=== PATIENT | female | born 1995 | race Caucasian/White ===

== ENCOUNTER 2020-08-05 09:43 | Outpatient (REF) | payer MEDICAID, SELFPAY ==
[2020-08-06 09:41] LABS: BV Int Neg Control Negative (Negative); BV Int Pos Control Positive (Positive)
[2020-08-09 16:13] LABS: HPV mRNA E6/E7 rflx Not Detected (Not Detected)
[2020-08-31 11:27] LABS: CT PCR NOT DETECTED (Not Detect.)
[2020-08-31 11:28] LABS: NG PCR NOT DETECTED (Not Detect.)
== END 2020-08-05 09:44 | disposition home or self-care (01) ==
LOC: HO.LAB 09:43
PROVIDERS: PCP Registered Nurse; Visit Provider Advanced Practice Midwife
DX: Z01.419 Encounter for gynecological examination (general) (routine) without abnormal findings (principal); N92.6 Irregular menstruation, unspecified; R10.2 Pelvic and perineal pain; Z12.4 Encounter for screening for malignant neoplasm of cervix; Z98.51 Tubal ligation status
CPT/HCPCS: 87480; 87491; 87510; 87591; 87624; 87625; 87660; 88142

== ENCOUNTER 2020-08-06 09:34 | Outpatient (REF) | payer MEDICAID, SELFPAY | END 2020-08-06 09:35 | disposition home or self-care (01) | LOC: HO.LAB 09:34 | PROVIDERS: Visit Provider Advanced Practice Midwife | DX: Z13.89 Encounter for screening for other disorder (principal) ==

== ENCOUNTER 2020-10-08 19:14 | Emergency (ER) | payer MEDICAID, SELFPAY ==
--- NOTE | ~2020-10-08 | CT_ITS ---
EXAMINATION: CT ABDOMEN AND PELVIS WITH CONTRAST CLINICAL INFORMATION: Right lower quadrant pain COMPARISON: None TECHNIQUE: Multidetector volumetric images were obtained from the superior aspect of the liver through the pubic symphysis following administration 85 mL of Omnipaque 350 intravenous contrast. Sagittal and coronal reformatted images were obtained on the technologist's workstation. Oral contrast: No This CT examination was performed using dose optimization techniques as appropriate, variously including the following: *Automated exposure control *Adjustment of mA and/or kV according to patient size (this includes techniques or standardized protocols for targeted exams where dose is matched to indication/reason for exam; i.e. extremities or head) *Use of iterative reconstruction technique DLP: 553 mGy-cm FINDINGS: LUNG BASES: The visualized lung bases are unremarkable. LIVER, GALLBLADDER, AND BILIARY TREE: The liver is normal in size, shape, and attenuation. No focal hepatic lesion or biliary ductal dilatation is present. Cholecystectomy. PANCREAS: Unremarkable. SPLEEN: Unremarkable. ADRENAL GLANDS: Unremarkable. KIDNEYS AND URETERS: The kidneys are normal in size, shape, and attenuation. No hydronephrosis, hydroureter, or calculi seen. No perinephric stranding. BLADDER: Unremarkable. GASTROINTESTINAL TRACT: The stomach is unremarkable. Normal caliber small bowel. There is no obstruction. A normal appendix is seen. No colonic wall thickening or inflammatory change. No free air. Trace pelvic free fluid. ABDOMINAL WALL: No significant hernia is appreciated. LYMPH NODES: Normal. VASCULAR: Unremarkable. PELVIC VISCERA: Anteverted uterus. No adnexal mass. Peripherally enhancing right ovarian follicle which measures 2.2 cm. OSSEOUS STRUCTURES: Unremarkable. CT/CT abdomen pelvis w con IMPRESSION: Normal appendix. Peripherally enhancing right ovarian follicle could represent hemorrhagic cyst.
[2020-10-08 19:31] VITALS: BP 124/75; PULSE 86; RESP 18; TEMP 36.9; O2SAT 100; BMI 23.8
[2020-10-08 21:41] LABS: Glucose Urine UA NEG (NEG); Leukocyte Esterase Urine NEG (NEG); Nitrite Urine NEG (NEG); Specific Gravity - Urine 1.025 (1.005-1.025); Urine Blood TRACE (NEG); Urine Ketones NEG (NEG); Urine Protein NEG (NEG-TRACE)
[2020-10-08 21:47] LABS: Appearance Urine CLEAR; Color Urine YELLOW
[2020-10-08 21:49] LABS: UPreg QC Valid YES; Urine Pregnancy NEGATIVE (NEGATIVE)
[2020-10-08 21:58] LABS: Bacteria Urine 1+ /LPF; Mucus Urine 1+ /LPF; Squamous Epithelial Cell Urine 1+ /LPF; WBC Urine 0-2 /HPF (0-4)
--- NOTE | 2020-10-08 23:04 | ED.ABDPAIN ---
HPI - Abdominal Pain General Chief Complaint: Abdominal Pain Stated Complaint: lower quad pain Time Seen by Provider: 10/08/20 23:03 Source: patient and machine attendant Mode of arrival: ambulatory Limitations: no limitations History of Present Illness HPI narrative: 25 yo female s/p maximiliano alan here with RLQ pain and nausea/anorexia x 2 days - has worsened MD elicited complaint: abdominal pain Onset (ago): day(s) (2) Pain Consistency: constant Location: RLQ Severity: moderate Quality: aching Radiation: RLQ Migration to: no migration Exacerbating factors: movement Relieving factors: nothing Associated symptoms: nausea Related Data Home Medications Medication Instructions Recorded Confirmed No Known Home Meds 08/05/20 08/05/20 Previous Rx's Medication Instructions Recorded cyclobenzaprine 10 mg PO TID PRN #14 tab 10/09/20 ibuprofen 600 mg PO Q6H PRN #30 tab 10/09/20 ondansetron 4 mg PO Q8H PRN #20 tab 10/09/20 Allergies Allergy/AdvReac Type Severity Reaction Status Date / Time No Known Allergies Allergy Verified 08/05/20 10:03 Review of Systems Review of Systems Constitutional : No Weight loss, No Fever, No Chills ENT/Mouth : No sore throat, No Rhinorrhea Eyes: No Swelling, No Redness Cardiovascular : No Chest Pain, No SOB, NoEdema Respiratory : No Cough, No Sputum, No Wheezing Gastrointestinal : Positive Nausea, no Vomiting, no Diarrhea, positive abdominal Pain, No Hematochezia, No Melena Genitourinary : No Dysuria, No Urinary Frequency, No Hematuria, No Urgency Musculoskeletal : No joint pain, No Myalgias, No Joint Swelling Skin : No Skin Lesions, No rash Neuro : No Weakness, No Numbness, No Dizziness, No Headache Psych : No Anxiety/Panic, No Depression Heme/Lymph: No Bruising, No Lymphadenopathy Endocrine : No Polyuria, No Polydipsia All other systems reviewed and are negative. Physical Exam Vital Signs: Vital Signs: Last Vital Signs Temp 98.4 F 10/08/20 23:24 Pulse 75 10/08/20 23:24 Resp 18 10/08/20 23:24 BP 110/69 10/08/20 23:24 Pulse Ox 100 10/08/20 23:24 Body Mass Index 23.8 Appearance: Alert. Oriented X3. No acute distress. Eyes: Pupils equal, round and reactive to light. ENT: Pharynx normal. Neck: Normal inspection. Neck supple. CVS: Normal heart rate and rhythm. Pulses normal. Respiratory: No respiratory distress. Breath sounds normal. Abdomen: Soft and moderate RLQ pain noted no rebound or guarding Skin: Skin warm and dry. Normal skin color. Normal skin turgor. Extremities: No lower extremity edema. No calf ttp Neuro: Oriented X 3. No motor deficit. No sensory deficit. Course Course Course Narrative: on repeat exam very minimal pain, H/H stable - doubt torsion 2.2 cm will treat for pain and DC home, all questions answered MDM - Abdominal Pain MDM Narrative Medical decision making narrative: 25 yo female here with RLQ pain x 2 days with nausea and anorexia at this time will need labs, IVF, IV Toradol for pain , CT scan to evaluate appendix, dispo per results and findings. Lab Data Result diagrams: 10/08/20 23:22 10/08/20 23:22 Labs: Lab Results 10/08/20 10/08/20 10/08/20 Range/Units 21:09 21:09 23:22 WBC 11.1 H (4.8-10.8) X10*3/uL RBC 4.05 L (4.20-5.50) X10*6/uL Hgb 12.3 (12.0-16.0) g/dl Hct 36.8 L (37-47) % MCV 90.9 (80-98) fL MCH 30.4 (27.0-33.0) pg MCHC 33.4 (31.0-35.0) g/dl RDW 11.6 (11.0-16.0) % Plt Count 273 (160-400) X10*3/uL MPV 11.4 (9.4-12.3) fL Immature Gran % (Auto) 0.3 (0.0-0.4) % Neut % (Auto) 42.4 L (45-73) % Lymph % (Auto) 48.9 H (20-40) % Spencer % (Auto) 6.8 (2-11) % Eos % (Auto) 1.2 (0-4) % Baso % (Auto) 0.4 (0-2) % Lymph # (Auto) 5.4 H (1.2-4.9) X10*3/uL Spencer # (Auto) 0.8 (0.1-1.2) X10*3/uL Eos # (Auto) 0.1 (0.0-0.4) X10*3/uL Baso # (Auto) 0.0 (0.0-0.2) X10*3/uL Abs Immat Gran (auto) 0.03 (0.00-0.03) X10*3/uL Absolute Neuts (auto) 4.7 (2.0-8.3) X10*3/uL Absolute Nucleated RBC 0.000 (0.0-0.012) X10*3/uL Nucleated RBC % (auto) 0.0 (0.0-0.2) /100WBC Smear Tech's Comments VERIFIED PT (10.8-13.0) SEC INR (0.9-1.1) APTT (24.1-38.0) SEC Sodium (135-145) mmol/L Potassium (3.3-5.1) mmol/L Chloride (96-108) mmol/L Carbon Dioxide (22-29) mmol/L Anion Gap (12-20) BUN (9-16) mg/dL Creatinine (0.5-1.4) mg/dL Estim Creat Clear Calc Estimated GFR Random Glucose (60-115) mg/dL Calcium (8.4-10.2) mg/dL Magnesium (1.6-2.6) mg/dL Total Bilirubin (0.0-1.0) mg/dL Direct Bilirubin (0.0-0.5) mg/dL AST (5-31) U/L ALT (0-31) U/L Alkaline Phosphatase (39-117) U/L Total Protein (6.5-8.0) g/dL Albumin (3.5-5.0) g/dL Lipase (8-78) U/L Urine Color YELLOW Urine Appearance CLEAR Urine pH 6.0 (5.0-8.0) Ur Specific [place] 1.025 (1.005-1.025) Urine Protein NEG (NEG-TRACE) MG/DL Urine Glucose (UA) NEG (NEG) MG/DL Urine Ketones NEG (NEG) MG/DL Urine Blood TRACE (NEG) Urine Nitrite NEG (NEG) Ur Leukocyte Esterase NEG (NEG) Urine RBC 1-4 (0) /HPF Urine WBC 0-2 (0-4) /HPF Ur Squamous Epith Cells 1+ /LPF Urine Bacteria 1+ /LPF Urine Mucus 1+ /LPF Urine Test NEGATIVE (NEGATIVE) COVID-19 (ALEX) (Negative) COVID-19 Clin Com 10/08/20 10/08/20 10/08/20 Range/Units 23:22 23:22 23:22 WBC (4.8-10.8) X10*3/uL RBC (4.20-5.50) X10*6/uL Hgb (12.0-16.0) g/dl Hct (37-47) % MCV (80-98) fL MCH (27.0-33.0) pg MCHC (31.0-35.0) g/dl RDW (11.0-16.0) % Plt Count (160-400) X10*3/uL MPV (9.4-12.3) fL Immature Gran % (Auto) (0.0-0.4) % Neut % (Auto) (45-73) % Lymph % (Auto) (20-40) % Spencer % (Auto) (2-11) % Eos % (Auto) (0-4) % Baso % (Auto) (0-2) % Lymph # (Auto) (1.2-4.9) X10*3/uL Spencer # (Auto) (0.1-1.2) X10*3/uL Eos # (Auto) (0.0-0.4) X10*3/uL Baso # (Auto) (0.0-0.2) X10*3/uL Abs Immat Gran (auto) (0.00-0.03) X10*3/uL Absolute Neuts (auto) (2.0-8.3) X10*3/uL Absolute Nucleated RBC (0.0-0.012) X10*3/uL Nucleated RBC % (auto) (0.0-0.2) /100WBC Smear Tech's Comments PT 12.0 (10.8-13.0) SEC INR 1.0 (0.9-1.1) APTT 38.6 H (24.1-38.0) SEC Sodium 138 (135-145) mmol/L Potassium 3.6 (3.3-5.1) mmol/L Chloride 105 (96-108) mmol/L Carbon Dioxide 27 (22-29) mmol/L Anion Gap 10 L (12-20) BUN 20 H (9-16) mg/dL Creatinine 0.70 (0.5-1.4) mg/dL Estim Creat Clear Calc 113.0 Estimated GFR > 60 Random Glucose 72 (60-115) mg/dL Calcium 9.4 (8.4-10.2) mg/dL Magnesium 1.9 (1.6-2.6) mg/dL Total Bilirubin 0.5 (0.0-1.0) mg/dL Direct Bilirubin 0.2 (0.0-0.5) mg/dL AST 22 (5-31) U/L ALT 18 (0-31) U/L Alkaline Phosphatase 64 (39-117) U/L Total Protein 7.3 (6.5-8.0) g/dL Albumin 4.3 (3.5-5.0) g/dL Lipase 32 (8-78) U/L Urine Color Urine Appearance Urine pH (5.0-8.0) Ur Specific [place] (1.005-1.025) Urine Protein (NEG-TRACE) MG/DL Urine Glucose (UA) (NEG) MG/DL Urine Ketones (NEG) MG/DL Urine Blood (NEG) Urine Nitrite (NEG) Ur Leukocyte Esterase (NEG) Urine RBC (0) /HPF Urine WBC (0-4) /HPF Ur Squamous Epith Cells /LPF Urine Bacteria /LPF Urine Mucus /LPF Urine Test (NEGATIVE) COVID-19 (ALEX) Negative (Negative) COVID-19 Clin Com See Note Discharge Plan Discharge Clinical Impression: Ovarian cyst Qualifiers: Laterality: right Qualified Code(s): N83.201 - Unspecified ovarian cyst, right side Patient Disposition: Home, Self-Care Instructions: Ovarian Cyst (ED) Additional Instructions: return to ED for any worsening symptoms or concerns REPEAT ULTRASOUND IN 4 WEEKS Prescriptions: New cyclobenzaprine 10 mg tablet 10 mg PO TID PRN (Reason: muscle spasm) Qty: 14 RF: 0 ibuprofen 600 mg tablet 600 mg PO Q6H PRN (Reason: pain) Qty: 30 RF: 0 ondansetron 4 mg tablet,disintegrating 4 mg PO Q8H PRN (Reason: nausea and vomiting) Qty: 20 RF: 0 No Action No Known Home Meds RF: 0 Referrals: [place] [Primary Care Provider] - None (4 weeks repeat ultrasound) Stand Alone Forms: Work/School Release Print Language: Pashto [facility] Past Medical History Attestation statement: The following information was validated with the patient. Medical History (Updated 10/09/20 @ 01:26 by Chandni Steele DO) Bipolar 1 disorder Surgical History (Updated 10/08/20 @ 23:39 by Chandni Steele DO) History of hip surgery Hx of cholecystectomy Hx of tubal ligation Family History Family History (Updated 08/05/20 @ 10:06 by Mireille Erickson CMA) Maternal Aunt No problems noted. Social History Social History Alcohol intake: never Smoking Status: Never smoker Smoked in Last 30 Days: No Use of substances other than those prescribed or required for medical reasons: No Advance Directives: No Gender identity: female
[2020-10-08 23:24] VITALS: BP 110/69; PULSE 75; RESP 18; TEMP 36.9; O2SAT 100
[2020-10-08] MEDS: 0.9 % Sodium Chloride 1,000 ML 999 ML IVCONT (23:28)
[2020-10-08] MEDS: Ketorolac Tromethamine 30 MG/ML VIAL IVPUSH (23:30)
[2020-10-08] MEDS: ondansetron HCL 4 MG/2 ML VIAL IVPUSH (23:30)
[2020-10-08 23:31] LABS: Basophils Percent Auto 0.4 % (0-2); Eosinophils Absolute Auto 0.1 X10*3/uL (0.0-0.4); Eosinophils Percent Auto 1.2 % (0-4); Hematocrit 36.8 % (37-47); Hemoglobin 12.3 g/dl (12.0-16.0); Imm Gran Abs Auto 0.03 X10*3/uL (0.00-0.03); Imm Gran Pct Auto 0.3 % (0.0-0.4); Lymphocytes Absolute Auto 5.4 X10*3/uL (1.2-4.9); Lymphocytes Percent Auto 48.9 % (20-40); MANUAL DIFF FLAG SCAN; Mean Corpuscular HGB Conc 33.4 g/dl (31.0-35.0); Mean Corpuscular Hemoglobin 30.4 pg (27.0-33.0); Mean Corpuscular Volume 90.9 fL (80-98); Mean Platelet Volume 11.4 fL (9.4-12.3); Monocytes Absolute Auto 0.8 X10*3/uL (0.1-1.2); Monocytes Percent Auto 6.8 % (2-11); Neutrophils Absolute Auto 4.7 X10*3/uL (2.0-8.3); Neutrophils Percent Auto 42.4 % (45-73); Platelet Count 273 X10*3/uL (160-400); Red Blood Count 4.05 X10*6/uL (4.20-5.50); Red Cell Distribution Width 11.6 % (11.0-16.0); SCAN SMEAR FLAG 1; White Blood Count 11.1 X10*3/uL (4.8-10.8)
[2020-10-08 23:40] LABS: Partial Thromboplastin Time 38.6 SEC (24.1-38.0)
[2020-10-08 23:46] LABS: COVID-19 Test Negative (Negative)
[2020-10-08 23:48] LABS: SLIDE REVIEW VERIFIED
[2020-10-08 23:50] LABS: Alanine Aminotransferase 18 U/L (0-31); Albumin Level 4.3 g/dL (3.5-5.0); Alkaline Phosphatase 64 U/L (39-117); Anion Gap 10 (12-20); Aspartate Amino Transferase 22 U/L (5-31); Bilirubin Direct 0.2 mg/dL (0.0-0.5); Bilirubin Total 0.5 mg/dL (0.0-1.0); Blood Urea Nitrogen 20 mg/dL (9-16); Calcium 9.4 mg/dL (8.4-10.2); Carbon Dioxide 27 mmol/L (22-29); Chloride 105 mmol/L (96-108); Estimated Glomerular Filt Rate > 60; Glucose Random 72 mg/dL (60-115); Lipase 32 U/L (8-78); Magnesium 1.9 mg/dL (1.6-2.6); Potassium 3.6 mmol/L (3.3-5.1); Sodium 138 mmol/L (135-145); Total Protein 7.3 g/dL (6.5-8.0)
[2020-10-09] MEDS: iohexoL 350 MG/ML 100 ML INFUS..BTL 85 ML IV (00:54)
[2020-10-09 02:00] VITALS: BP 104/56; PULSE 84; RESP 18; TEMP 36.7; O2SAT 99
== END 2020-10-09 02:36 | disposition home or self-care (01) ==
PROVIDERS: Emergency Provider Emergency Medicine
DX: N83.01 Follicular cyst of right ovary (principal); Z20.822 Contact with and (suspected) exposure to COVID-19; Z90.49 Acquired absence of other specified parts of digestive tract
CPT/HCPCS: 36415; 74177; 80048; 80076; 81001; 81025; 83690; 83735; 85025; 85610; 85730; 87635; 96361; 96374; 96375; 99284; 99285; J1885; J2405; Q9967

== ENCOUNTER 2020-11-21 14:30 | Outpatient (REF) | payer MEDICAID, SELFPAY ==
--- NOTE | ~2020-11-21 | US_ITS ---
EXAMINATION: US PELVIS CLINICAL INFORMATION: Right ovarian cysts. COMPARISON: CT dated 10/09/2020 TECHNIQUE: Ultrasound of the pelvis is performed using a transabdominal approach. FINDINGS: Uterus: The uterus is anteverted and measures 8.1 x 3.8 x 4.8 cm. The double wall endometrial thickness is 4 mm. The uterus is smooth in contour and has normal myometrial echogenicity. No visible fibroid. Adnexa: Both ovaries are visualized. There is normal color flow to the adnexa. There is no ovarian torsion. There is no pelvic ascites or fluid collection. Right ovary measures 2.6 x 2.2 x 2.0 cm. Previously seen right ovarian cyst has resolved. Left ovary measures 2.9 x 2.0 x 2.5 cm. US/US pelvic complete IMPRESSION: No ovarian or adnexal cyst/mass. Unremarkable exam.
== END 2020-11-21 14:31 | disposition home or self-care (01) ==
LOC: HO.US 14:30
PROVIDERS: Visit Provider Registered Nurse
DX: R10.9 Unspecified abdominal pain (principal); N83.201 Unspecified ovarian cyst, right side
CPT/HCPCS: 76856

== ENCOUNTER 2022-10-14 10:18 | Emergency (ER) | payer MEDICAID, SELFPAY ==
--- NOTE | ~2022-10-14 | CT_ITS ---
EXAMINATION: CT HEAD WITHOUT CONTRAST CLINICAL INFORMATION: Right-sided headaches and pain COMPARISON: None TECHNIQUE: Contiguous axial imaging was performed from the skull base to vertex without intravenous administration of contrast. This CT examination was performed using dose optimization techniques as appropriate, variously including the following: *Automated exposure control *Adjustment of mA and/or kV according to patient size (this includes techniques or standardized protocols for targeted exams where dose is matched to indication/reason for exam; i.e. extremities or head) *Use of iterative reconstruction technique DLP: 588 mGy-cm FINDINGS: No intra or extra-axial fluid collection, hemorrhage, mass or mass effect. Sulci and ventricles appear normal. Calvarium intact. Mucoperiosteal thickening with superimposed fluid seen in the visualized portions of the left maxillary sinus. The mastoid air cells appear clear. The right and left middle ears and external auditory canals appear clear. CT/CT head/brain wo IV con IMPRESSION: Left maxillary sinus disease. Please refer to the mastoid CT for more complete evaluation of the left as well as the right maxillary sinus since the structures were not fully covered on this head CT. No acute intracranial abnormalities.
--- NOTE | ~2022-10-14 | CT_ITS ---
CT MASTOIDS WITHOUT CONTRAST CLINICAL INFORMATION: Right-sided headache/ear pain for one month. COMPARISON: Head CT 10/14/2022. TECHNIQUE: Multidetector CT acquisition of the temporal bones obtained without contrast. FINDINGS: The mastoid air cells and middle ear cavities are clear. Tympanic plates are intact and the external auditory canals are well aerated. Ossicular chains are intact bilaterally. Inner ear structures including the cochlea, vestibules, and semicircular canals are normal. The vestibular aqueducts are not enlarged. Internal carotid arteries remain well covered with with bone. There is no otospongiosis. Moderate mucosal thickening and aerosolized secretions within the left maxillary sinus. Mild mucosal thickening within the remaining paranasal sinuses. Recommend correlating for clinical signs of acute sinusitis. CT/CT mastoid IMPRESSION: - Unremarkable CT of the temporal bones. The mastoid air cells and middle ear cavities are clear. - Moderate mucosal thickening and aerosolized secretions within the left maxillary sinus. Mild mucosal thickening within the remaining paranasal sinuses. Recommend correlating for clinical signs of acute sinusitis.
[2022-10-14 10:37] VITALS: BP 140/88; PULSE 92; RESP 16; TEMP 36.8; O2SAT 100; BMI 23.4
--- NOTE | 2022-10-14 11:05 | ED_ITS ---
HPI - Ear Problem General Chief complaint: Headache Stated complaint: headache, R ear ache Time Seen by Provider: 10/14/22 10:54 Source: patient and family (Spouse) Mode of arrival: ambulatory Limitations: language barrier (Swedish-speaking) History of Present Illness HPI Narrative: 27yoF who is Swedish Speaking who is presenting to the ER with complaints of right-sided ear pain with a headache to the right side of her head that is throbbing in sensation that has been persistent for over a month. Reports that she was seen at [facility] prescribed antibiotics for 10 days to pass prescribed. She reports that they told her she had no relief that she should return therefore she did return and then they told her that a course of steroids should help. She reports that she took a 5 day course of steroids and no symptomatic relief. Therefore she came here for further evaluation treatment. She denies any fevers, recent falls or trauma recent travel, ringing of the ears, dizziness, neck pain/stiffness, recent head injury, neck pain/stiffness, trouble swallowing breathing, chest pain or shortness breath, paresthesias, weakness anywhere, abdominal pain, lower extremity edema or calf tenderness, rashes, sore throat, cough, grinding of her teeth or any other symptoms complaints or concerns at this time. MD Complaint: ear pain (And headache) Location: right ear Duration: constant Severity: mild Relieving factors: nothing Exacerbating factors: chewing and palpation Discharge from ear: no Associated symptoms ear: headache Treatment prior to arrival: other (Took a course of antibiotics and a course of steroids over the past) Related Data Previous Rx's Medication Instructions Recorded cyclobenzaprine 10 mg tablet 10 mg PO TID PRN muscle spasm #14 10/09/20 tabs ibuprofen 600 mg tablet 600 mg PO Q6H PRN pain #30 tabs 10/09/20 ondansetron 4 mg disintegrating 4 mg PO Q8H PRN nausea and 10/09/20 tablet vomiting #20 tabs cyclobenzaprine 10 mg tablet 10 mg PO Q8H #14 tabs 10/14/22 levofloxacin 750 mg tablet 750 mg PO DAILY Sinusitis 10/14/22 maxillary 7 days #7 tabs Allergies Allergy/AdvReac Type Severity Reaction Status Date / Time No Known Allergies Allergy Verified 10/14/22 10:42 Review of Systems Review of Systems: Constitutional : No changes in activity, No lethargy, No recent prior head injury, No agitation, No increased fussiness ENT/Mouth :+ right sided Ear Pain, + Nasal discharge/drainage Eyes: No Eye Pain, No Swelling, No Redness, No Foreign Body, No Vision Changes Cardiovascular : No Chest Pain, No SOB Respiratory : No Cough Gastrointestinal : No Nausea, No Vomiting, No abdominal Pain Genitourinary : No Dysuria, No Urinary Frequency, No Urinary Incontinence, No Urgency, No Flank Pain Musculoskeletal : No joint pain, No neck stiffness, No back pain/injury Skin : No lacerations Neuro : No unsteady gait, No Paresthesias, No Loss of Consciousness, No altered mental status, No dizziness, + Headache Denies past medical history of HIV, recent trauma, coagulopathy, recent spinal/ epidural procedure, new medication, URI symptoms, close contacts with similar symptoms, tick bite, or known CO2 exposure. Yes all other systems are reviewed and are negative PMFSH Past Medical History Attestation statement: The following information was validated with the patient. Source: old records reviewed and nursing notes reviewed Medical History Bipolar 1 disorder Surgical History History of hip surgery Hx of cholecystectomy Hx of tubal ligation Family History Family History Maternal Aunt No problems noted. Social History Social History Alcohol intake: never Advance Directives: No Advance Directives Information Provided: No Gender identity: Female Physical Exam Vital Signs: Vital Signs: Last Vital Signs Temp 98.3 F 10/14/22 10:37 Pulse 92 10/14/22 10:37 Resp 16 10/14/22 10:37 BP 140/88 H 10/14/22 10:37 Pulse Ox 100 10/14/22 10:37 O2 Del Method 10/14/22 10:37 BMI result Body Mass Index 23.4 Vital signs have been reviewed as normal and appeared to be correct. Blood p ressure normal. Heart rate normal. Respiration rate normal. Temperature normal. Oxygen saturation normal. Appearance: Alert. Oriented X3. No acute distress. Head: Normal external exam. Normocephalic. Atraumatic. Able to rotate head bilaterally. Eyes: PERRLA. EOMI. No nystagmus noted. Conjunctiva and sclera normal. Eyelids normal. Corneal reflex normal. ENT: EAC normal. TM's Normal. No tenderness over the mastoids. No abnormalities over the mastoids. Hearing normal. Pharynx normal. Uvula midline. tongue midline. Moist mucous membranes. No trismus noted. No drooling noted. No muffled voice noted. Patient has tenderness palpation on the right side of the TMJ joint. No crepitus is noted. Neck: Normal inspection. Neck supple. FROM. No adenopathy. Thyroid Normal. No meningeal signs. No neck mass noted. CVS: Normal heart rate and rhythm. Heart sound normal. No murmurs noted. Pulses normal throughout. Respiratory: No respiratory distress. Painless inspiration. Breath sounds normal. No wheezes/rales/rhonchi noted. Chest nontender. No accessory muscle usage noted or decreased air movement noted. Back: Full range of motion noted. Skin: Skin warm and dry. Normal skin color. Normal skin turgor. No rashes/lesions/lacerations noted. Extremities: Extremities exhibit normal range of motion. Extremities nontender. Able to shrug shoulders bilaterally and keep up against resistance. Neuro: Oriented X 3. No motor deficit. No sensory deficit. Reflexes normal. Moving all extremities. No focal motor deficits. Cranial nerves II-XI intact bilaterally. Facial strength normal. Normal cognition. Speech normal. Gait normal. Strength 5/5 throughout. No tremor noted. Muscle tone normal throughout. Course Course Course Narrative: 27yoF who is Swedish Speaking who is presenting to the ER with complaints of right-sided ear pain with a headache to the right side of her head that is throbbing in sensation that has been persistent for over a month. Reports that she was seen at [facility] prescribed antibiotics for 10 days to pass prescribed. She reports that they told her she had no relief that she should return therefore she did return and then they told her that a course of steroids should help. She reports that she took a 5 day course of steroids and no symptomatic relief. Therefore she came here for further evaluation treatment. Patient most likely TMJ syndrome. Not consistent with otitis media. Not consistent with otitis externa. Not consistent mastoiditis. Not consistent with pharyngitis. Not consistent with foreign body. Will obtain a CT scan of brain and mastoid and and re-evaluate. Reevaluation(s) Reevaluation #1: CT scan of brain and mastoids revealed moderate mucosal thickening and secretions which in the maxillary sinuses. Otherwise no other acute processes. Therefore patient most likely sinusitis with TMJ syndrome. Will start on another course of antibiotics and muscle relaxants and instructions to follow-up with PCP and to return if any new or worsening symptoms. Patient understands agrees with this plan. Time: 12:43 Medical Decision Making Independent Interpretation I performed an independent interpretation of an: CT Scan (I reviewed the CT scan of brain and mastoid and reviewed this with the patient she understands results) Radiology Impression Discussion of test interpretation with radiology: I have reviewed the radiologist's reading. Radiologist Impression: FINDINGS: The mastoid air cells and middle ear cavities are clear. Tympanic plates are intact and the external auditory canals are well aerated. Ossicular chains are intact bilaterally. Inner ear structures including the cochlea, vestibules, and semicircular canals are normal. The vestibular aqueducts are not enlarged. Internal carotid arteries remain well covered with with bone. There is no otospongiosis. Moderate mucosal thickening and aerosolized secretions within the left maxillary sinus. Mild mucosal thickening within the remaining paranasal sinuses. Recommend correlating for clinical signs of acute sinusitis. CT/CT mastoid IMPRESSION: - Unremarkable CT of the temporal bones. The mastoid air cells and middle ear cavities are clear. ? - Moderate mucosal thickening and aerosolized secretions within the left maxillary sinus. Mild mucosal thickening within the remaining paranasal sinuses. Recommend correlating for clinical signs of acute sinusitis. FINDINGS: No intra or extra-axial fluid collection, hemorrhage, mass or mass effect. Sulci and ventricles appear normal. Calvarium intact. Mucoperiosteal thickening with superimposed fluid seen in the visualized portions of the left maxillary sinus. The mastoid air cells appear clear. The right and left middle ears and external auditory canals appear clear. ? CT/CT head/brain wo IV con IMPRESSION: Left maxillary sinus disease. Please refer to the mastoid CT for more complete evaluation of the left as well as the right maxillary sinus since the structures were not fully covered on this head CT. ? No acute intracranial abnormalities. Independent Historian Clinical information obtained from an independent historian. History obtained from or confirmed by: Spouse Discharge Plan Discharge Clinical Impression: Acute maxillary sinusitis, Right-sided temporomandibular joint pain-dysfunction syndrome Patient Disposition: Home, Self-Care Instructions: Sinusitis (ED), Temporomandibular Disorder (ED) Prescriptions: New levofloxacin 750 mg tablet 750 mg PO DAILY 7 Days Qty: 7 0RF cyclobenzaprine 10 mg tablet 10 mg PO Q8H Qty: 14 0RF No Action cyclobenzaprine 10 mg tablet 10 mg PO TID PRN (Reason: muscle spasm) Qty: 14 0RF ibuprofen 600 mg tablet 600 mg PO Q6H PRN (Reason: pain) Qty: 30 0RF ondansetron 4 mg tablet,disintegrating 4 mg PO Q8H PRN (Reason: nausea and vomiting) Qty: 20 0RF Referrals: [facility] [Primary Care Provider] - 3 days Print Language: Swedish
== END 2022-10-14 13:08 | disposition home or self-care (01) ==
PROVIDERS: Emergency Provider Emergency Medicine
DX: J01.00 Acute maxillary sinusitis, unspecified (principal); R51.9 Headache, unspecified; M26.621 Arthralgia of right temporomandibular joint; H92.01 Otalgia, right ear; Z79.899 Other long term (current) drug therapy
CPT/HCPCS: 70450; 70481; 99282; 99284

== ENCOUNTER 2023-12-20 09:48 | Outpatient (REF) | payer MEDICAID, SELFPAY ==
[2023-12-20 11:40] LABS: MANUAL DIFF FLAG NO
[2023-12-20 11:48] LABS: Basophils Absolute Auto 0.1 X10*3/uL (0.0-0.2); Basophils Percent Auto 0.8 % (0-2); Eosinophils Absolute Auto 0.2 X10*3/uL (0.0-0.4); Eosinophils Percent Auto 3.2 % (0-4); Hematocrit 38.1 % (37.0-47.0); Imm Gran Abs Auto 0.02 X10*3/uL (0.00-0.03); Imm Gran Pct Auto 0.3 % (0.0-0.4); Lymphocytes Absolute Auto 2.6 X10*3/uL (1.2-4.9); Lymphocytes Percent Auto 42.6 % (20-40); Mean Corpuscular HGB Conc 34.1 g/dl (31.0-35.0); Mean Corpuscular Hemoglobin 30.8 pg (27.0-33.0); Mean Corpuscular Volume 90.3 fL (80.0-98.0); Mean Platelet Volume 11.5 fL (9.4-12.3); Monocytes Absolute Auto 0.5 X10*3/uL (0.1-1.2); Monocytes Percent Auto 7.7 % (2-11); Neutrophils Absolute Auto 2.7 x10*3/uL (2.0-8.3); Neutrophils Percent Auto 45.4 % (45-73); Platelet Count 328 X10*3/uL (160-400); Red Blood Count 4.22 X10*6/uL (4.20-5.50); Red Cell Distribution Width 11.9 % (11.0-16.0)
[2023-12-20 12:30] LABS: Estimated Average Glucose 85 mg/dL; Hemoglobin A1c % 4.6 % (<6.0)
[2023-12-20 13:09] LABS: Alanine Aminotransferase 15 U/L (0-31); Albumin Level 4.3 g/dL (3.5-5.0); Alkaline Phosphatase 60 U/L (39-117); Anion Gap 9 (12-20); Aspartate Amino Transferase 22 U/L (5-31); Bilirubin Direct 0.3 mg/dL (0.0-0.5); Bilirubin Total 0.7 mg/dL (0.0-1.0); Blood Urea Nitrogen 11 mg/dL (9-16); Calcium 9.7 mg/dL (8.4-10.2); Carbon Dioxide 28 mmol/L (22-29); Chloride 105 mmol/L (96-108); Cholesterol 159 mg/dL (<200); Estimated Glomerular Filt Rate > 60; Glucose Random 78 mg/dL (60-115); HDL Cholesterol 59 mg/dL (>40); LDL Cholesterol Calculated 82 mg/dL (<100); Potassium 4.1 mmol/L (3.3-5.1); Sodium 138 mmol/L (135-145); Total Protein 7.8 g/dL (6.5-8.0); Triglycerides 90 mg/dL (<150)
[2023-12-20 13:29] LABS: HIV AB/AG Nonreactive (Nonreactive); HIV Num 1 0.05 S/CO (0.00-0.99)
[2023-12-20 13:40] LABS: ~HepC Num1 0.13 S/CO (0.00-0.79); ~Hepatitis C Antibody Nonreactive (Nonreactive)
== END 2023-12-20 09:49 | disposition home or self-care (01) ==
LOC: HO.HHCL 09:48
PROVIDERS: Visit Provider Internal Medicine
DX: Z00.00 Encounter for general adult medical examination without abnormal findings (principal); Z11.4 Encounter for screening for human immunodeficiency virus [HIV]
CPT/HCPCS: 36415; 80048; 80061; 80076; 82306; 83036; 85025; 86803; 87389

== ENCOUNTER 2024-02-18 | Outpatient (REF) | payer MEDICAID, SELFPAY ==
[2024-02-21 20:33] LABS: HPV mRNA E6/E7 Not Detected (Not Detected)
--- OUTSIDE RECORDS SUMMARY | 2024-08-09 15:58 | XMS_ITS | Data Portability ---
Author Organization [place] - [facility], Allergy Address [address] [place] [phone] Care Team Providers Care Applied Statistician Name Role Phone ISELA CLINTON, SIRENA Primary Care Provider Assessment Encounter Date Assessment Date Assessment LastModified by Organization Details LastModified Time 03/29/2024 03/29/2024 28-year-old female presents for evaluation of right-sided ear pain. Otologic exam is unremarkable. Audiometric testing shows normal hearing and tympanometry bilaterally. Oral exam shows no masses or lesion and dentition in good repair. Patient does have significant crepitus on the right side of her TMJ. This is more than likely the cause of her intermittent ear pain. TMJ precautions were discussed. As she has not had any pain in the last month no further intervention was recommended. She should however return if the pain comes back or if she has any new or worsening symptoms. Would consider FOL at that time. Will follow-up with the dentist in the meantime for nightguard fitting. All questions were answered. [email or web address] Not available 03/29/2024 15:04:23 Plan of Treatment Reminders Order Date Submit Date Provider Last Modified By Organization Details Last Modified Time Details Appointments None record ed. Lab None record ed. Referral None record ed. Procedures None record ed. Surgeries None record ed. Imaging None record ed. Medication Orders None record ed. Patient TargetsNo targets recorded. Patient InstructionsNo instructions recorded. Reason for Referral None Reported. Results Created Date Observation Date Name Description Value Unit Range Abnormal Flag Note LastModifiedBy Organization Detail LastModifiedTime 03/30/20 24 audio gram No observ ation record ed. [email or web address] Not Available 03/2024 08:59:44 Result Notes None recorded. Problems Name Problem SNOMED Code Status Onset Date Resolution Date Notes Provider Name and Address Organization Details Recorded Time Otalgia of right ear 8014337480 Active 2023 CONSTANTIN ROCA, HANK [address] [place] [address], [phone], [facility] 14:36:01 Arthralgia of temporomandib ular joint 87132156 Active 2023 MAGNUS HARMAN PA-C [address] [place] [address], [phone], [facility] 15:04:08 Problem Notes None recorded. Procedures Surgical History Date Name Laterality Status Provider Name and Address Organization Details Recorded Time 03/29/2024 Air & Speech Audio with Tymps (39033, 03188 & 72094) completed CONSTANTIN ROCA HANK [address] [place] [address], [phone], [facility] 03/29/2024 14:36:11 Imaging Results Imaging Date Name Status LastModified by Organiz ation Details LastModified Time 03/30/2024 audiogram completed [email or web address] Information n ot available 03/30/2024 08:59:44 Procedure Notes None recorded. Medical Equipment None Reported. Vitals Date Recorded Body height Body mass index (BMI) Body weight Provider Name and Address Organization Details Last Updated DateTime 03/29/2024 167.64 cm 27.4 kg/m2 27673.7 g Sahara [place] [facility] 03/29/2024 14:46:20 Social History None recorded. Functional Status None recorded. Mental Status None recorded. Family History Nothing Reported. Medical History No medical history recorded. Gynecological HistoryNo gynecological history recorded. Obstetrics History GPAL:G 0 P 0 0 0 0 Past Encounters Encounter ID Performer Location Encounter Start Date Encounter Closed Date Diagnosis/Indication Diagnosis SNOMED-CT Code Diagnosis ICD10 Code [id number] MAGNUS HARMAN PA-C [facility] [address] [place] [address] 03/29/2024 13:44:41 03/29/2024 15:02:12 Otalgia of right ear 8653143877 H92.01 Arthralgia of temporomandibular joint 75141030 M26.629 Health Concerns Section Related Observation LastModified by Organization Detai ls LastModified Time None Recorded Concern Status LastModified by Organization Details LastModified Time None Recorded Advance Directives Directive None Recorded Payers Encounter Date Sequence Insurance Name Policy Number Policy Talley Covered Member ID Talley Member ID Guarantor Name 03/29/2024 1 [place] [facility] Hannah Goodman [id number] Tataila Goodman Notes Date Note Type Note Provider Name and Address Organization Details Recorded Time 03/29/2024 text/html 28-year-old tresa johnston presents for evaluation of right ear pain. This began about 6 months ago and she was given antibiotic by her primary care. It resolved somewhat but she continued to have intermittent ear pain on that side without any diminished hearing or drainage from the ear. She has however not had any pain for about a month. Unsure about bruxism. History of casual tobacco use but has not smoked in over a year. No red flag symptoms. MAGNUS HARMAN PA-C [address] [place] [address], [phone], [facility] - [facility] 03/29/2024 15:04:42 OBGyn Episode No OBEpisode recorded.
== END 2024-02-18 00:01 | disposition home or self-care (01) ==
LOC: HO.LNP
PROVIDERS: Visit Provider Internal Medicine
DX: Z12.4 Encounter for screening for malignant neoplasm of cervix (principal); Z11.51 Encounter for screening for human papillomavirus (HPV)
CPT/HCPCS: 87624; 88175

== ENCOUNTER 2024-08-09 12:09 | Outpatient (REF) | payer MEDICAID, SELFPAY ==
[2024-08-09 14:03] LABS: Hematocrit 37.5 % (37.0-47.0); Hemoglobin 12.4 g/dl (12.0-16.0); Mean Corpuscular HGB Conc 33.1 g/dl (31.0-35.0); Mean Corpuscular Hemoglobin 30.7 pg (27.0-33.0); Mean Corpuscular Volume 92.8 fL (80.0-98.0); Mean Platelet Volume 11.5 fL (9.4-12.3); Platelet Count 331 X10*3/uL (160-400); Red Blood Count 4.04 X10*6/uL (4.20-5.50); Red Cell Distribution Width 11.7 % (11.0-16.0); White Blood Count 6.6 X10*3/uL (4.8-10.8)
[2024-08-09 14:08] LABS: Estimated Average Glucose 88 mg/dL; Hemoglobin A1C 85.9316 umol/L; Hemoglobin A1c % 4.7 % (<6.0); Total Hemoglobin (HGBA1C) 3131.9172 umol/L
[2024-08-09 14:22] LABS: Alanine Aminotransferase 21 U/L (0-31); Albumin Level 4.4 g/dL (3.5-5.0); Alkaline Phosphatase 62 U/L (39-117); Anion Gap 9 (12-20); Aspartate Amino Transferase 28 U/L (5-31); Bilirubin Direct 0.2 mg/dL (0.0-0.5); Bilirubin Total 0.4 mg/dL (0.0-1.0); Blood Urea Nitrogen 9 mg/dL (9-16); Calcium 9.1 mg/dL (8.4-10.2); Carbon Dioxide 28 mmol/L (22-29); Chloride 107 mmol/L (96-108); Cholesterol 161 mg/dL (<200); Estimated Glomerular Filt Rate > 60; Glucose Random 86 mg/dL (60-115); HDL Cholesterol 67 mg/dL (>40); LDL Cholesterol Calculated 77 mg/dL (<100); Potassium 3.8 mmol/L (3.3-5.1); Sodium 140 mmol/L (135-145); Total Protein 7.6 g/dL (6.5-8.0); Triglycerides 85 mg/dL (<150)
[2024-08-09 14:47] LABS: Free T4 (Free Thyroxine) 1.16 ng/dL (0.71-1.85); Thyroid Stimulating Hormone 0.65 uIU/mL (0.32-4.0); Vitamin D 25-OH Total 16.4 ng/mL (>30)
[2024-08-09 14:54] LABS: Insulin 6 uU/mL (2-29)
== END 2024-08-09 12:10 | disposition home or self-care (01) ==
LOC: HO.HHCL 12:09
PROVIDERS: Visit Provider Family Medicine
DX: R42 Dizziness and giddiness (principal)
CPT/HCPCS: 36415; 80048; 80061; 80076; 82306; 83036; 83525; 84439; 84443; 85027

== ENCOUNTER 2024-09-20 16:45 | Outpatient (REF) | payer MEDICAID, SELFPAY ==
--- NOTE | ~2024-09-20 | CT_ITS ---
CLINICAL HISTORY: intermittent episodes of dizziness frontal headache CT head without IV contrast Comparison: CT/SR - CT HEAD/BRAIN WO IV CON - 10/14/22 11:12 EST Findings: The ventricles are normal in configuration. Basilar cisterns intact. No intracranial hemorrhage, mass-effect or midline shift. No extra-axial fluid collections. The parenchyma is unremarkable in attenuation. Velez-white matter junction preserved. No evidence of acute large vessel or territorial ischemia. Brainstem and cerebellum unremarkable. The calvarium is intact. The imaged portion of the paranasal sinuses demonstrated a large polyp or retention cyst right maxillary sinus. Bilateral ethmoid sinusitis. No mastoid effusions. The orbital contents are unremarkable. Impression: 1. No CT evidence of acute intracranial pathology. Maxillary polyp and/or retention cysts. Bilateral ethmoid sinusitis obstructive type. This document has been electronically signed by: Darvin Perez MD on 09/21/2024 10:56:55
--- OUTSIDE RECORDS SUMMARY | 2024-09-20 17:53 | XMS_ITS | Data Portability ---
Author Organization [place] - [facility], Allergy Address [address] [place] [phone] Care Team Providers Care Manager Of Care Name Role Phone ISELA CLINTON, SIRENA Primary [...] for nightguard fitting. All questions were answered. [email or web address] Not available 03/29/2024 15:04:23 Plan of Treatment [...] audio gram No observ ation record ed. [email or web address] Not Available 03/2024 08:59:44 Result Notes None recorded. Problems Name Problem SNOMED Code Status Onset Date Resolution Date Notes Provider Name and Address Organization Details Recorded Time Otalgia of right ear 1282650879 Active 2023 CONSTANTIN ABELINO, HANK [address] [place] [address], [phone], [facility] 14:36:01 Arthralgia of temporomandib ular joint 11778569 Active 2023 MAGNUS HARMAN PA-C [address] [place] [address], [phone], [facility] 15:04:08 Problem Notes None recorded. Procedures Surgical History Date Name Laterality Status Provider Name and Address Organization Details Recorded Time 03/29/2024 Air & Speech Audio with Tymps (17849, 76592 & 69297) completed CONSTANTIN ROCA HANK [address] [place] [address], [phone], [facility] 03/29/2024 14:36:11 Imaging Results Imaging Date Name Status LastModified by Organiz ation Details LastModified Time 03/30/2024 audiogram completed [email or web address] Information n ot available 03/30/2024 08:59:44 Procedure Notes None recorded. Medical Equipment None Reported. Vitals Date Recorded Body height Body mass index (BMI) Body weight Provider Name and Address Organization Details Last Updated DateTime 03/29/2024 167.64 cm 27.4 kg/m2 55429.7 g Sahara [place] [facility] 03/29/2024 14:46:20 Social History None recorded. Functional Status None recorded. Mental Status None recorded. Family History Nothing Reported. Medical History No medical history recorded. Gynecological HistoryNo gynecological history recorded. Obstetrics History GPAL:G 0 P 0 0 0 0 Past Encounters Encounter ID Performer Location Encounter Start Date Encounter Closed Date Diagnosis/Indication Diagnosis SNOMED-CT Code Diagnosis ICD10 Code Diagnosis Note [id number] MAGNUS HARMAN PA-C [facility] [address] [place] [address] 03/29/2024 13:44:41 03/29/2024 15:02:12 Otalgia of right ear 1066690571 H92.01 Right Ear:Normal hearing with excellent speech discrimina tion.Type A tympanogra m.Left Ear:Normal hearing with excellent speech discrimina tion.Type A tympanogra m. Arthralgia of temporomandibular joint 96575909 M26.629 Health Concerns Section Related Observation LastModified by Organization Detai ls LastModified Time None Recorded Concern Status LastModified by Organization Details LastModified Time None Recorded Advance Directives Directive None Recorded Payers Encounter Date Sequence Insurance Name Policy Number Policy Talley Covered Member ID Talley Member ID Guarantor Name 03/29/2024 1 [place] [employer] [id number] [facility] Rex Notes Date Note Type Note Provider Name [...] No red flag symptoms. MAGNUS HARMAN PA-C [address] [place] [address], [place], [address], [facility] - [facility] 03/29/2024 15:04:42 OBGyn Episode No OBEpisode recorded.
--- OUTSIDE RECORDS SUMMARY | 2024-09-20 17:54 | XMS_ITS | Clinical Summary ---
Author Organization [employer] Address [address] [facility] [address] [place] [address] Care Team Providers Care Conference Assistant Name Role Phone Lyndsey Landaverde MD Primary Care Provide r Allergies No known active allergies Medications * This document contains information received from the source organization and may not represent a complete record from that organization. acetaminophen (Tylenol) 500 MG tablet Take 1 tablet by mouth every 12 (twelve) hours. 2 Active docusate sodium (Colace) 100 MG capsule Take 1 capsule by mouth every 12 (twelve) hours. 1 Active pseudoephedrine (Sudafed) 30 MG tabletIndicatio ns:Dysfunction of right eustachian tube Take 1 tablet (30 mg) by mouth every 12 (twelve) hours for 10 days. 20 tablet 2 Active cetirizine (ZyrTEC) 10 MG tablet Take 1 tablet (10 mg) by mouth Once per day. 30 tablet 3 4 08/09/20 25 Active fluticasone (Flonase) 50 MCG/ACT nasal spray Administer 2 sprays into each nostril Once per day. Shake gently. Before first use, prime pump. After use, clean tip and replace cap. 16 g 3 4 08/09/20 25 Active cholecalciferol (Vitamin D-3) 50 MCG (2000 UT) capsule Take 1 capsule (50 mcg) by mouth Once per day. 90 capsule 3 4 08/18/20 25 Active Active Problems Problem Noted Date Diagnosed Date Encounter for cervical Pap smear with pelvic exa m 02/18/2024 Assessment & Plan (02/18/2024 1:39 PM EDT): Pelvic exam and PAP smear done Patient will be contacted with results Chronic right ear pain 10/25/2023 Chronic dysfunction of right eustachian tube 11/2023 Other chest pain 10/25/2023 Anxiety 10/25/2023 Health care maintenance 10/25/2023 Resolved Problems Problem Noted Date Diagnosed Date Resolved Date Acute otitis media 02/18/2024 Bipolar disorder 08/07/2022 10/25/2023 Encounters * This document contains information received from the source organization and may not represent a complete record from that organization. Date Type Department Care Team Description 08/15/2024 Refill [facility] [address] [place] [phone] Mady Cortez RN 08/09/2024 11:15 AM EST Office Visit [facility] [address] [place] [phone] Maribell Petersen DO Dizziness (Primary Dx); New onset headache; Palpitations; Anxiety 08/09/2024 Travel 08/09/2024 Telephone [facility] [address] [place] [phone] Lyndsey Landaverde MD Nurse Triage from Last 3 Months Immunizations Name Administration Dates Next Due Pfizer Covid-19 Vaccine 12+ 08/10/2023 Social History Tobacco Use Types Packs/Day Years Used Date Smoking Tobacco: Never Passive Smoke Exposure: Never Smokeless Tobacco: Never Tobacco Cessation:Counseling Given: Not Answered Alcohol Use Standard Drinks/Week Comments Never 0 (1 standard drink = 0.6 oz pur e alcohol) Depression Answer Date Recorded Patient Health Questionnaire-9 Score 0 08/09/2024 Patient Health Questionnaire-9 Score 0 08/09/2024 Last PHQ-9: Questionnaire Data Not on file 1 10/10/2023 Housing Stability Answer Date Recorded What is your housing situation today? I have kahlil perez 08/09/[address] you li ve. Do you have problems with any of the following? None of the above 08/09/2024 Food Insecurity Answer Date Recorded Within the past 12 months, y ou worried that your food would run out before you got money to buy more: Never True 06/28/2023 Within the past 12 months,th e food you bought just didn't last and you didn't have enough money to get more: Never True 01/2023 Transportation Answer Date Recorded In the past 12 months, has l ack of transportation kept you from medical appts, meetings, work or from getting things needed for daily living? No 06/28/2023 Utilities Answer Date Recorded In the past 12 months, has t he electric, gas, oil or water company threatened to shut off services in your home? No 06/28/2023 Depression Answer Date Recorded Patient Health Questionnaire-2 Score 0 08/09/2024 Internet Access Answer Date Recorded Internet Access Q1 Yes 08/09/2024 Internet Access Q2 Not on file 08/09/2024 Comments Unknown Sex and Gender Information Value Date Recorded Sex Assigned at Female 06/22/2022 10:15 AM EDT Legal Sex Female 10:15 AM EDT Gender Identity Female 06/22/2022 10:15 AM EDT Sexual Orientation Straight 06/22/2022 10 :15 AM EDT Last Filed Vital Signs Vital Sign Reading Time Taken Comments Blood Pressure 120/70 08/09/2024 11:39 AM EST Pulse 84 08/09/2024 11:39 AM EST Temperature 36.2 ??C (97.2 ??F) 08/09/2024 11:[address] Respiratory Rate 23 08/09/2024 11:39 AM EST Oxygen Saturation 94% 10/25/2023 2:07 PM EST Inhaled Oxygen Concentration - - Weight 79.4 kg (175 lb 1 oz) 08/09/2024 11:39 AM EST Height 170.2 cm (5' 7 ) 08/09/2024 11:39 AM EST Body Mass Index 27.42 08/09/2024 11:39 AM EST Plan of Treatment Health Maintenance Due Date Last Done Comments Family Planning (PISQ) 2008 DTaP/Tdap/Td Vaccines (1 - Tdap) 2012 Hepatitis B Vaccines (1 of 3 - 19+ 3-dose series) 2012 COVID-19 Vaccine (2 2023-2 5 season) 2024 08/10/2023 Influenza Vaccine (#1) 2024 Alcohol/Substance Use Screening 08/09/2025 08/09/2024 Depression Screening 08/09/2025 08/09/2024, 08/09/2024 SDOH Screening 08/09/2025 08/09/2024 Tobacco Screening 08/09/2025 08/09/2024 Cervical Cancer Screening 02/17/2029 HPV/Cotest 02/17/2029 02/18/2024 Pap Smear 02/17/2029 02/18/2024 Zoster Vaccines (1 of 2) 2043 RSV Patients and Patients Aged 60 years or older (1 - 1-dose 75+ series) 2068 HIV Screening Completed 12/20/2023, 07/22/2020 Hepatitis C Screening Completed 12/20/2023 HIB Vaccines Aged Out No longer eligi ble based on patient's age to complete this topic HPV Vaccines Aged Out No longer eligi ble based on patient's age to complete this topic Hepatitis A Vaccines Aged Out No long er eligible based on patient's age to complete this topic IPV Vaccines Aged Out No longer eligi ble based on patient's age to complete this topic Meningococcal Vaccine Aged Out No onur aura eligible based on patient's age to complete this topic Pneumococcal Vaccine: Pediatrics (0 to 5 Years) and At-Risk Patients (6 to 49) Years) Aged Out No longer eligible b ased on patient's age to complete this topic RSV under 20 months Aged Out No longe r eligible based on patient's age to complete this topic Rotavirus Vaccines Aged Out No longer eligible based on patient's age to complete this topic Procedures Procedure Name Priority Date/Time Associated Diagnosis Comments INSULIN Routine 08/09/2024 12:10 PM EST Dizziness BASIC METABOLIC PANEL Routine 08/09/2024 12:10 PM EST Dizziness CBC Routine 08/09/2024 12:10 PM EST Dizziness HEMOGLOBIN A1C Routine 08/09/2024 12:10 PM EST Dizziness HEPATIC FUNCTION PANEL Routine 08/09/2024 12:10 PM EST Dizziness VITAMIN D,25-OH,TOTAL,IA Routine 08/09/2024 12:10 PM EST Dizziness TSH Routine 08/09/2024 12:10 PM EST Dizziness LIPID PANEL, STANDARD Routine 08/09/2024 12:10 PM EST Dizziness T4, FREE Routine 08/09/2024 12:10 PM EST Dizziness THINPREP IMAGING PAP AND HPV MRNA E6/E7 WITH REFLEX TO HPV 16,18/45 Routine 02/18/2024 9:08 AM EDT HEPATITIS C AB W/REFL TO HCV RNA, QN, PCR Routine 12/20/2023 9:52 AM EDT Health care maintenance HIV 1/2 ANTIGEN/ANTIBODY, FOURTH GENERATION W/RFL Routine 12/20/2023 9:52 AM EDT Health care maintenance from Last 3 Months or Most Recently Relevant to Health Maintenance Results * (ABNORMAL) Vitamin D, 25-Hydroxy, Total, Immunoassay (08/09/2024 12:10 PM EST) Pathologist [facility] Vitamin D 25-OH Total 16.4(L) >30 ng/mL [facility] Comment:Health Based Referen ce Values*< 20 ng/mL Tsfqzwkok26-60 ng/mL Insufficient> 30 ng/mL Sufficient*Katya ALVARENGA. N Engl J Med. 2007;357:266-280Care must be taken in interpreting Vitamin D results fromdifferent laboratories and methodologies. Published datademonstrated that results from patients undergoinghemodialysis may show a negative bias when tested withvarious automated 25-OH vitamin D assays when compared toLC-MS/MS.When testing samples from patients whose predominant form ofVitamin D is Vitamin D2, such as patients receiving VitaminD2 supplementation, results that are subtherapeutic shouldbe confirmed with another method such as LC-MS/MS. Blood Venous blood specimen / Unknown 08/09/2024 12:10 PM EST 08/09/2024 1:50 PM EST Maribell Petersen DO LAB BLOOD ORDERABLES Final R esult Performing Organization Address [facility] Co de Phone Number [facility] [address] [place] [phone] * Insulin (08/09/2024 12:10 PM EST) Insulin 6 2 - 29 uU/mL [facility] Comment:This test was perfor med using the Starteed chemiluminescentmethod. Values obtained from different assay methods cannot beused interchangeably. This insulin assay shows a possiblecross-reactivity with antibodies generated against insulin(immunoreactive insulin and some patients treated withbovine or porcine insulin). Insulin levels may be measuredlower in patients with insulin autoimmune syndrome orfamilial high pro-insulinemia. Blood Venous blood specimen / Unknown 08/09/2024 12:10 PM EST 08/09/2024 1:50 PM EST Maribell Petersen DO LAB BLOOD ORDERABLES Final R esult Performing Organization Address [facility] Co de Phone Number [facility] [address] [place] [phone] * (ABNORMAL) CBC (08/09/2024 12:10 PM EST) White Blood Count 6.6 4.8 - 10.8 X10*3/uL [facility] Red Blood Count 4.04(L) 4.20 - 5.50 X10*6/uL [facility] Hemoglobin 12.4 12.0 - 16.0 g/dl [facility] Hematocrit 37.5 37.0 - 47.0 % [facility] Mean Corpuscular Volume 92.8 80.0 - 98.0 fL [facility] Mean Corpuscular Hemoglobin 30.7 27.0 - 33.0 pg [facility] Mean Corpuscular HGB Conc 33.1 31.0 - 35.0 g/dl [facility] Red Cell Distribution Width 11.7 11.0 - 16.0 % [facility] Platelet Count 331 160 - 400 X10*3/uL [facility] Mean Platelet Volume 11.5 9.4 - 12.3 fL [facility] NRBC Pct Auto 0.0 0.0 - 0.2 /100WBC [facility] NRBC Abs Auto 0.000 0.0 - 0.012 X10*3/uL [facility] Blood Venous blood specimen / Unknown 08/09/2024 12:10 PM EST 08/09/2024 1:50 PM EST Maribell Petersen DO LAB BLOOD ORDERABLES Final R esult Performing Organization Address City/[facility]/ZIP Co de Phone Number [facility] [address] [place] [phone] * TSH (08/09/2024 12:10 PM EST) Thyroid Stimulating Hormone 0.65 0.32 - 4.0 uIU/mL [facility] Comment:TSH 3rd Generation ( [facility]) Blood Venous blood specimen / Unknown 08/09/2024 12:10 PM EST 08/09/2024 1:50 PM EST Maribell Petersen DO LAB BLOOD ORDERABLES Final R esult [facility] [address] [place] [phone] * T4, Free (08/09/2024 12:10 PM EST) Free T4 (Free Thyroxine) 1.16 0.71 - 1.85 ng/dL [facility] Blood Venous blood specimen / Unknown 08/09/2024 12:10 PM EST 08/09/2024 1:50 PM EST Maribell Petersen DO LAB BLOOD ORDERABLES Final R esult Performing Organization Address [facility] Co de Phone Number [facility] [address] [place] [phone] * Hemoglobin A1c (08/09/2024 12:10 PM EST) Hemoglobin A1c 4.7 <6.0 % [facility] Comment:Hemoglobin A1C Refer ence Range Adults: 4.8 - 6.0 % Non diabetic: < 6.0 % Goal: < 7.0 %Additional Action Suggested: > 8.0 %Note: Hemoglobin A1c results are invalid for patients with abnormal amounts of HbF. Blood transfusions may impact the HbA1c concentration in the patient sample. Estimated Average Glucose 88 mg/dL [facility] Comment:eAG = Estimated ave rage glucose which is %A1C expressed asaverage glucose, using the formula of the O6D-FufdnmuXcoxgka Glucose study (ADAG), Diabetes Care, Vol.31,#8,2007 Blood Venous blood specimen / Unknown 08/09/2024 12:10 PM EST 08/09/2024 1:50 PM EST us Maribell Petersen DO LAB BLOOD ORDERABLES Final R [facility] Performing Organization Address [facility] Co de Phone Number [facility] [address] [place] [phone] * Hepatic Function Panel (08/09/2024 12:10 PM EST) Bilirubin, Total 0.4 0.0 - 1.0 mg/dL [facility] Bilirubin, Direct 0.2 0.0 - 0.5 mg/dL [facility] Aspartate Amino Transferase 28 5 - 31 U/L [facility] Alanine Aminotransferase 21 0 - 31 U/L [facility] Total Protein 7.6 6.5 - 8.0 g/dL [facility] Albumin Level 4.4 3.5 - 5.0 g/dL [facility] Alkaline Phosphatase 62 39 - 117 U/L [facility] Blood Venous blood specimen / Unknown 08/09/2024 12:10 PM EST 08/09/2024 1:50 PM EST Maribell Trinity DO LAB BLOOD ORDERABLES Final R esult Performing Organization Address [facility] Co de Phone Number [facility] [address] [place] [phone] * Lipid Panel, Standard (08/09/2024 12:10 PM EST) Triglycerides 85 <150 mg/dL [facility] Comment:Desirable Triglyceri de: less than 150 mg/dLBorderline High Triglyceride 150-199 mg/dLHigh Triglyceride: 200-499 mg/dLVery High Triglyceride: greater than or equal to 5OO mg/dL Cholesterol 161 <200 mg/dL [facility] Comment:Desirable Cholestero l: less than 200 mg/dLBorderline High Cholesterol: 200-239 mg/dLHigh Cholesterol: greater than 239 mg/dL LDL Cholesterol Calculated 77 <100 mg/dL [facility] Comment:Desirable LDL: less than 100 mg/dLNear Optimal/Above Optimal LDL: 110- 129 mg/dLBorderline High LDL: 130-159 mg/dLHigh LDL: 160-189 mg/dLVery High LDL: greater than or equal to 190 mg/dL HDL Cholesterol 67 >40 mg/dL [facility] Comment:Desirable HDL: great er than 40 mg/dL Note: This HDL assay may give artificially low results in patients with liver disease. Blood Venous blood specimen / Unknown 08/09/2024 12:10 PM EST 08/09/2024 1:50 PM EST Maribell Petersen DO LAB BLOOD ORDERABLES Final R esult Performing Organization Address [facility]/ZIP Co de Phone Number [facility] [address] [place] [phone] * (ABNORMAL) Basic Metabolic Panel (08/09/2024 12:10 PM EST) Sodium 140 135 - 145 mmol/L [facility] Potassium 3.8 3.3 - 5.1 mmol/L [facility] Chloride 107 96 - 108 mmol/L [facility] Carbon Dioxide 28 22 - 29 mmol/L [facility] Anion Gap 9(L) 12 - 20 [facility] Urea Nitrogen (BUN) 9 9 - 16 mg/dL [facility] Creatinine, Serum 0.61 0.5 - 1.4 mg/dL [facility] Estimated Glomerular Filt Rate >60 [facility] Comment:Chronic Kidney Disea se: Estimated GFR < 60 mL/min/1.64u8Klkurq Kidney Disease: Estimated GFR < 15 mL/min/1.73m2 Glucose 86 60 - 115 mg/dL [facility] Calcium 9.1 8.4 - 10.2 mg/dL [facility] Blood Venous blood specimen / Unknown 08/09/2024 12:10 PM EST 08/09/2024 1:50 PM EST Maribell Petersen DO LAB BLOOD ORDERABLES Final R esult [facility] [address] [place] [phone] * ThinPrep Imaging Pap and HPV mRNA E6/E7 with Reflex to HPV 16,18/45 (02/18/2024 9:08 AM EDT) HPV 16 RNA RIP [facility] HPV 18/45 RNA [facility] HPV nRNA E6/E7 Not Detected Not Detected [facility] Comment:Methodology: Transcr iption-Mediated AmplificationThis assay detects E6/E7 viral messenger RNA (mRNA) from 14high-risk HPV types (16,18,31,33,35,39,45,51,52,56,58,59,66,68).Cervical sources are required for HPV testing.If a vaginal source from a patient who has had atotal hysterectomy with removal of cervix wassubmitted, please contact the testing laboratoryfor alternative testing options.For additional information, please refer [email or web address].InsureWorx/faq/BHP596o5(This link if provided for information/educational purposes only.)THIS TEST WAS PERFORMED AT:[employer] [employer] [address] [phone] REYES MD SOURCE: SEE NOTE [facility] Comment:Cervix Report Status: [facility] Clinical Information: SEE NOTE [facility] Comment:None given LMP: SEE NOTE [facility] Comment:NONE GIVEN Prev. PAP: SEE NOTE [facility] Comment:NONE GIVEN Prev. BX: SEE NOTE [facility] Comment:NONE GIVEN Statement Of Adequacy: SEE NOTE [facility] Comment:Satisfactory for joni luation.Endocervical/transformation zone componentpresent. General Categorization: [facility] Interpretation/Result: SEE NOTE [facility] Comment:Cytology Results: Ne gative for intraepitheliallesion or malignancy. Cytology Comment SEE NOTE [facility] Comment:This Pap test has be en evaluated with computerassisted technology. Sports Photographer: SEE NOTE [facility] Comment:EXJ, CT(ASCP)CT Scre ening Location: [place] [address] Review Sports Photographer: [facility] Pathologist [facility] PAP Infection SEE NOTE [facility] Comment:Shift in vaginal kalpana ra suggestive of bacterialvaginosis. See Note SEE NOTE [facility] Comment:EXPLANATORY NOTE:The Pap is a screening test for cervical cancer. It isnot a diagnostic test and is subject to false negativeand false positive results. It is most reliable when asatisfactory sample, regularly obtained, is submittedwith relevant clinical findings and history, and whenthe Pap result is evaluated along with historic andcurrent clinical information. 02/18/2024 9:08 AM EDT 02/18/2024 4:21 PM EDT Narrative [facility] - 02/28/2024 3:25 PM EDT SEE SCANNED RESULTS IN EMRRCERVIX us Lyndsey Kaba MD LAB PATHOLOGY ORDERAB LES Final Result Performing Organization Address [facility] Co de Phone Number [facility] [address] [place] [phone] [phone] * Hepatitis C Antibody with Reflex to HCV, RNA, Quantitative, Real-Time PCR (12/20/2023 9:52 AM EDT) Hepatitis C Antibody Nonreactive Nonreactive [facility] Comment:Antibodies to HCV no t detected; does not exclude early acuteHCV infection. Blood Venous blood specimen / Unknown 12/20/2023 9:52 AM EDT 12/20/2023 11:39 AM EDT us Lyndsey Kaba MD LAB BLOOD ORDERABLES Final Result Performing Organization Address [facility] de Phone Number [facility] [address] [place] [phone] * HIV-1/2 Antigen and Antibodies, Fourth Generation, with Reflexes (12/20/2023 9:52 AM EDT) HIV AB/AG Nonreactive Nonreactive [facility] Comment:HIV-1 p24 Ag and/or HIV-1/HIV-2 Ab not detected.A test result that is nonreactive does not exclude thepossibility of exposure to or infection with HIV-1 and/orHIV-2. Nonreactive results in this assay for individualswith prior exposure to HIV-1 and/or HIV-2 may be due toantigen and antibody levels that are below the limit ofdetection of this assay.The [email or web address] HIV Ag/Ab Combo assay result andsupplemental assay results should be interpreted inconjunction with the patient's clinical presentation,history and other laboratory results. If the results areinconsistent with clinical evidence, additional testing issuggested to confirm the result. Blood Venous blood specimen / Unknown 12/20/2023 9:52 AM EDT 12/20/2023 11:39 AM EDT us Lyndsey Kaba MD LAB BLOOD ORDERABLES Final Result [facility] [address] [place] [phone] from Last 3 Months or Most Recently Relevant to Health Maintenance Insurance [facility] C3 Care Teams Conference Assistant Relationship Specialty Start Date End Date Lyndsey Landaverde MD [address] [place] [phone] PCP - General Internal Medicine 10/25/23
== END 2024-09-20 16:46 | disposition home or self-care (01) ==
LOC: HO.CT 16:45
PROVIDERS: PCP Internal Medicine; Visit Provider Family Medicine
DX: R42 Dizziness and giddiness (principal); R51.9 Headache, unspecified
CPT/HCPCS: 70450

== ENCOUNTER → 2024-09-20 16:47 | Outpatient (BNV) | payer MEDICAID, SELFPAY | PROVIDERS: PCP Internal Medicine; Visit Provider Radiology Diagnostic Radiology | DX: J01.20 Acute ethmoidal sinusitis, unspecified (principal) | CPT/HCPCS: 70450 ==

== ENCOUNTER 2024-12-27 12:55 | Outpatient (AMB) | payer MEDICAID, SELFPAY ==
--- NOTE | 2024-12-27 13:15 | MHC.OFFVIS ---
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 She notes that the symptoms have been intermittent for the last six months. The chest pain is described as sharp, and there is an occurrence of palpitations and dyspnea particularly during physical activity such as walking or standing. These episodes have not been constant but recur occasionally. She experiences these symptoms predominantly during activity and not while resting. Dizziness is noted at times, although the patient associates this with a possible ear issue. She tries to manage the episodes by relaxing and walking. [facility] Medical History Bipolar 1 disorder Surgical History Hx of cholecystectomy Hx of tubal ligation History of hip surgery Family History (Updated 12/27/24 @ 13:21 by Lidia Navarro) Maternal Aunt No problems noted. Mother No problems noted. Father Diabetes Social History (Updated 12/27/24 @ 13:21 by Lidia Navarro) Alcohol intake: current Alcohol intake frequency: holidays/special occasions only Patient Tobacco Use Status: Never used Tobacco Gender identity: Female Female Reproductive History Menstrual Age of Menarche: 13 Review of Systems Const Denies weakness ENT Denies dizziness Card Reports chest pain, Denies chest pain with activity, Denies syncope, Denies rapid heart rate, Denies pedal edema, Denies edema, Denies leg edema, Denies lightheadedness, Reports palpitations, Reports dyspnea, Denies dyspnea on exertion and Denies orthopnea Resp Denies cough, Reports dyspnea and Denies dyspnea on exertion GI Denies hematochezia and Denies change in stool character Musc Denies abnormal gait, Reports myalgias, Denies muscle cramps, Denies muscle weakness, Denies numbness, Denies radiating pain into limb and Denies tingling Neuro Denies abnormal gait, Denies dizziness, Denies syncope, Denies numbness, Denies tingling and Denies weakness Endo Reports palpitations Physical Exam Vital Signs: Last Vital Signs Pulse 88 12/27/24 13:16 BP 122/68 12/27/24 13:16 BMI result Body Mass Index 26.6 Const General: comfortable and no acute distress Orientation/consciousness: patient oriented x3 HEENT Other: Unremarkable Head: Yes normal to inspection Neck Neck: Yes normal visual inspection Chest Chest palpation & inspection: normal inspection of the chest Resp Auscultation: clear to auscultation bilaterally Cardio Palpation: normal PMI Heart sounds: S1 normal heart sound present, S2 normal heart sound present, no gallops, no murmurs and no rubs GI Palpation (GI): Soft to palpation Back/Spine/Pelvis Other: unremarkable Skin General skin exam: no rashes or lesions noted Neuro General: patient oriented x3 Extrem General: Yes normal to inspection Psych Mental Status: mental status grossly normal Office Procedures EKG Details: EKG with sinus rhythm at 88/Min; no significant ST-T changes and otherwise unremarkable; [place] [address]-Ohbscsehmvogdxuaz, Complete Assessment & Plan Assessment & Plan (1) Precordial chest pain: Code(s): R07.2 - Precordial pain Category: Medical (2) SOB (shortness of breath): Code(s): R06.02 - Shortness of breath Category: Medical (3) Heart palpitations: Code(s): R00.2 - Palpitations Category: Medical Plan Various symptoms including chest pain, shortness of breath, palpitations that she correlates rather with physical activity. She has no clear risk factors however. We will perform a comprehensive workup including echocardiogram, ETT and Holter. Based on the findings, we can plan further care. Otherwise, mainly reassurance. Patient was informed and verbally consented to the use of an ambient scribe for clinic note documentation during this visit. Orders: Orders CA stress test Today Chauncey To MD R07.2 - Precordial pain ECG 7 day holter monitor Today Chauncey To MD R00.2 - Palpitations CA echo transthoracic complete Today Chauncey To MD R06.02 - Shortness of breath, R07.2 - Precordial pain Medications: Changed From cyclobenzaprine 10 mg PO Q8H 14 tabs 0RF To cyclobenzaprine 10 mg PO Q8H PRN Muriel Chester PA-C Patient Instructions: - Use the heart monitor as instructed for one week. - Also complete the echocardiogram and the stress test - Note any symptoms or episodes of chest pain or palpitations along with activity at the time. - Try to relax if symptoms arise and monitor your symptoms carefully. - Follow up with the cardiology department as advised. - Report immediately if you experience severe chest pain or difficulty breathing. Coding Level of Care Code New Pt Level 4 (25567) Complex EM visit Add On G2211 Diagnoses Precordial chest pain R07.2 SOB (shortness of breath) R06.02 Heart palpitations R00.2 CPT Codes EKG - CPT: 50110-Megbhoqhpcxpsarmo, Complete ([id number])
[2024-12-27 13:16] VITALS: BP 122/68; PULSE 88; BMI 26.6
--- OUTSIDE RECORDS SUMMARY | 2024-12-27 14:04 | XMS_ITS | Clinical Summary ---
Author Organization [employer] Address [address] [place] [address] [address] [place] [address] Care Team Providers Care Undercover Cop Name Role Phone Lyndsey Landaverde MD Primary Care Provide r Allergies No known active allergies Medications * This document contains information received from the source organization and may not represent a complete record from that organization. acetaminophen (Tylenol) 500 MG tablet Take 1 tablet by mouth every 12 (twelve) hours. 06/03/2022 Active docusate sodium (Colace) 100 MG capsule Take 1 capsule by mouth every 12 (twelve) hours. 10/09/2020 Active pseudoephedrine (Sudafed) 30 MG tabletIndicatio ns:Dysfunction of right eustachian tube Take 1 tablet (30 mg) by mouth every 12 (twelve) hours for 10 days. 20 tablet 08/07/2022 Active cholecalciferol (Vitamin D-3) 50 MCG (2000 UT) capsule Take 1 capsule (50 mcg) by mouth Once per day. 90 capsule 3 08/18/2024 Active cetirizine (ZyrTEC) 10 MG tablet TAKE 1 TABLET BY MOUTH EVERY DAY 90 tablet 1 10/31/2024 Active fluticasone (Flonase) 50 MCG/ACT nasal spray INSTILL 2 SPRAYS IN EACH NOSTRIL ONCE DAILY 48 g 10/31/2024 Active Active Problems Problem Noted Date Diagnosed [...] organization. Date Type Department Care Team Description 11/03/2024 Population Health Risk Score [facility] ([facility]) Department [address] [address] Provider, Population Health Generic 10/31/2024 Refill [facility] [address] [place] [address] Maribell Petersen DO from Last 3 Months Immunizations Name Administration [...] 19+ 3-dose series) 2012 COVID-19 Vaccine (2 - 2023-2 5 season) 2024 08/10/2023 Influenza Vaccine [...] Procedure Name Priority Date/Time Associated Diagnosis Comments THINPREP IMAGING PAP AND HPV MRNA E6/E7 WITH REFLEX TO HPV 16,18/45 Routine 02/18/2024 9:08 AM EDT HEPATITIS C AB W/REFL TO HCV RNA, QN, PCR Routine 12/20/2023 9:52 AM EDT Health care maintenance HIV 1/2 ANTIGEN/ANTIBODY, FOURTH GENERATION W/RFL Routine 12/20/2023 9:52 AM EDT Health care maintenance from Last 3 Months or Most Recently Relevant to Health Maintenance Results * ThinPrep Imaging Pap and HPV mRNA E6/E7 with Reflex to HPV 16,18/45 (02/18/2024 9:08 AM EDT) HPV 16 RNA [facility] HPV 18/45 RNA [facility] HPV nRNA E6/E7 Not Detected Not Detected [facility] Comment:Methodology: Transcr iption-Mediated AmplificationThis assay detects E6/E7 viral messenger RNA (mRNA) from 14high-risk HPV types (16,18,31,33,35,39,45,51,52,56,58,59,66,68).Cervical sources are required for HPV testing.If a vaginal source from a patient who has had atotal hysterectomy with removal of cervix wassubmitted, please contact the testing laboratoryfor alternative testing options.For additional information, please refer [email or web address](This link if provided for information/educational purposes only.)THIS TEST WAS PERFORMED AT:[facility] [address] [id number] REYES MD SOURCE: SEE NOTE [facility] Comment:Cervix Report Status: [facility] Clinical Information: SEE NOTE [facility] Comment:None given LMP: SEE NOTE [facility] Comment:NONE GIVEN Prev. PAP: SEE NOTE [facility] Comment:NONE GIVEN Prev. BX: SEE NOTE [facility] Comment:NONE GIVEN Statement Of Adequacy: SEE NOTE [facility] Comment:Satisfactory for joni luation.Endocervical/transformation zone componentpresent. General Categorization: [facility] Interpretation/Result: SEE NOTE [facility] Comment:Cytology Results: Ne gative for intraepitheliallesion or malignancy. Cytology Comment SEE NOTE [facility] Comment:This Pap test has be en evaluated with computerassisted technology. Drier Operator Helper: SEE NOTE [facility] Comment:EXJ, CT(ASCP)CT Scre ening Location: [place] [address] Review Drier Operator Helper: [facility] Pathologist [facility] PAP Infection SEE NOTE [facility] Comment:Shift in vaginal kalpana ra suggestive of bacterialvaginosis. See Note SEE NOTE [facility] Comment:EXPLANATORY NOTE:The Pap is a screening test for cervical cancer. It isnot a diagnostic test and is subject to false negativeand false positive results. It is most reliable when asatisfactory sample, regularly obtained, is submittedwith relevant clinical findings and history, and whenthe Pap result is evaluated along with historic andcurrent clinical information. 02/18/2024 9:08 AM EDT 02/18/2024 4:21 PM EDT Narrative [facility] - 02/28/2024 3:25 PM EDT SEE SCANNED RESULTS IN EMRRCERVIX us Lyndsey Kaba MD LAB PATHOLOGY ORDERAB LES Final Result Performing Organization Address City/[facility]/ZIP Co de Phone Number [facility] [address] [place] [address] [phone] * Hepatitis C Antibody with Reflex to HCV, RNA, Quantitative, Real-Time PCR (12/20/2023 9:52 AM EDT) Hepatitis C Antibody Nonreactive Nonreactive [facility] Comment:Antibodies to HCV no t detected; does not exclude early acuteHCV infection. Blood Venous blood specimen / Unknown 12/20/2023 9:52 AM EDT 12/20/2023 11:39 AM EDT us Lyndsey Kaba MD LAB BLOOD ORDERABLES Final Result Performing Organization Address [facility]/ZIP Co de Phone Number [facility] [address] [place] [phone] * HIV-1/2 Antigen and Antibodies, Fourth Generation, with Reflexes (12/20/2023 9:52 AM EDT) HIV AB/AG Nonreactive Nonreactive [facility] Comment:HIV-1 p24 Ag and/or HIV-1/HIV-2 Ab not detected.A test result that is nonreactive does not exclude thepossibility of exposure to or infection with HIV-1 and/orHIV-2. Nonreactive results in this assay for individualswith prior exposure to HIV-1 and/or HIV-2 may be due toantigen and antibody levels that are below the limit ofdetection of this assay.The Silvestre Alinity HIV Ag/Ab Combo assay result andsupplemental assay results should be interpreted inconjunction with the patient's clinical presentation,history and other laboratory results. If the results areinconsistent with clinical evidence, additional testing issuggested to confirm the result. Blood Venous blood specimen / Unknown 12/20/2023 9:52 AM EDT 12/20/2023 11:39 AM EDT us Lyndsey Kaba MD LAB BLOOD ORDERABLES Final Result [facility] [address] [place] [address] [phone] from Last 3 Months or Most Recently Relevant to Health Maintenance [facility] Care Teams Undercover Cop Relationship Specialty Start Date End Date Lyndsey Landaverde MD [address] [place] [address] PCP - General Internal Medicine 10/25/23
--- OUTSIDE RECORDS SUMMARY | 2024-12-27 14:04 | XMS_ITS | Data Portability ---
Author Organization [place] [facility] Address [address] [place] [phone] Assessment Encounter Date Assessment Date Assessment LastModified by Organization Details LastModified Time 06/01/2020 06/01/2020 Time On Scene with Patient: 00:00:33 Pt has no symptoms and has no complaints. Request service for COVID testing after finding family member positive. Family is quarantining for 2 weeks or until COVID tests return. [email or web address] Not available 06/01/2020 21:14:25 Plan of Treatment Reminders Order Date Submit Date Provider Last Modified By Organization Details Last Modified Time Details Appointments None recorded. Lab SARS CoV 2 RNA (COVID-19), QL, hr business partner consultant-PCR, respiratory specimen 2019 020 BELL [facility] (Centralized Electronic Ordering - All Locations), Patient Can Go To The Location Of Their Choice, [id number] 07:35:15 Referral None recorded. Procedures None recorded. Surgeries None recorded. Imaging None recorded. Medication Orders None recorded. Patient TargetsNo targets recorded. Patient InstructionsNo instructions recorded. Reason for Referral None Reported. Results Created Date Observation Date Name Description Value Unit Range Abnormal Flag Note LastModifiedBy Organization Detail LastModifiedTime 06/01/20 20 06/05/2020 SARS CoV 2 RNA (COVI D-19) , QL, hr business partner consultant-P CR, respi rator y speci men covid-19, ALEX Not Detec sybil Refer ence range : Not Detec sybil (NOTE ) Testi ng was perfo rmed using the gisela (R) SARS- CoV-2 test. This nucle ic acid ampli ficat ion test was devel oped and its perfo rmanc e gustavo cteri stics deter mined by [facility] at[facility] es. Nucle ic acid ampli ficat ion tests inclu de PCR and TMA. This test has not been FDA clear ed or appro guy. This test has been autho rized by FDA under an Emerg ency Use Autho rizat ion (EUA) . This test is only autho rized for the durat ion of time the decla ratio n that circu mstan yuri exist justi fying the autho rizat ion of the emerg ency use of in vitro diagn ostic tests for detec tion of SARS- CoV-2 virus and/o r diagn osis of COVID -19 infec tion under secti on 564(b )(1) of the Act, 21 U.S.C . 360bb b-3(b ) (1), unles s the autho rizat ion is termi nated or revok ed soone r. When diagn ostic testi ng is negat fabiola, the possi bilit y of a false negat fabiola resul t shoul d be consi dered in the maico xt of a patie nt's recen t expos ures and the prese nce of clini cristopher signs and sympt oms consi stent with COVID -19. An indiv idual witho ut sympt oms of COVID - 19 and who is not bruce ing SARS- CoV-2 virus would expec t to have a negat fabiola (not detec sybil) resul t in this assay . TEST PERFO RMED BY [facility], PAULIE CARTER Y Not Available [facility] (Centralized Electronic Ordering - All Locations) Patient Can Go To The Location Of Their Choice, [id number] 06/05/2020 07:35:15 Result Notes None recorded. Problems No Known Problems Medical Equipment None Reported. Allergies No known drug allergies Medications Name Sig Start Date Stop Date Status Note LastModified by Organization Details LastModified Time amoxicillin 500 mg capsule TAKE 1 CAPSULE BY MOUTH EVERY 8 HOURS UNTIL FINISHED 06/01 completed Not Available Not Available Not Available ibuprofen 800 mg tablet TAKE 1 TABLET BY MOUTH THREE TIMES DAILY WITH FOOD active Not Available Not Available No t Available Vitals Date Recorded Body temperature Oxygen saturation Oxygen saturation in Arterial blood by Pulse oximetry Heart rate Systolic blood pressure Diastolic blood pressure Provider Name and Address Organization Details Last Updated DateTime 0 98.9 [degF] 96 % 96 % 88 /min 112 mm[Hg] 60 mm[Hg] Not Available [facility] 0 18:32:54 Social History None recorded. Functional Status None recorded. Mental Status None recorded. Family History Nothing Reported. Medical History No medical history recorded. Gynecological HistoryNo gynecological history recorded. Obstetrics History GPAL:G 0 P 0 0 0 0 Past Encounters Encounter ID Performer Location Encounter Start Date Encounter Closed Date Diagnosis/Indication Diagnosis SNOMED-CT Code Diagnosis ICD10 Code Diagnosis Note [id number] ROSEMARY WEINBERG NP [facility] [address] [place] [address] 06/01/2020 18:31:37 06/05/2020 00:10:35 Exposure to communicable disease 861121713 Z20.828 Health Concerns Section Related Observation LastModified by Organization Detai ls LastModified Time None Recorded Concern Status LastModified by Organization Details LastModified Time None Recorded Advance Directives Directive None Recorded Payers Insurance Date Sequence Insurance Name Policy Number Policy Talley Covered Member ID Talley Member ID Guarantor Name 10/31/2020 1 [place] [facility] Kelsie Mass [id number] Kelsie Mass 06/01/2020 1 *SELF PAY* Kelsie Mass [id number] Kelsie Mass Notes Date Note Type Note Provider Name and Address Organization Details Recorded Time 06/01/2020 text/html 24 year-old female with no prior history who calls to her home to request testing for COVID. Pt speaks mostly Prydeinig but conveys that the mother of her boyfriend (also the grandmother to her children), was tested for COVID and found to be positive. There are no symptoms for her or for patient.SHe denies any complaints but wants to check for the virus. ROSEMARY WEINBERG NP [address], [place], [address], [place] [facility] 06/01/2020 21:14:39 OBGyn Episode No OBEpisode recorded.
== END 2024-12-27 13:46 | disposition home or self-care (01) ==
LOC: HO.HCS 12:56
PROVIDERS: PCP Internal Medicine; Visit Provider Internal Medicine
DX: R07.2 Precordial pain (principal); R06.02 Shortness of breath; R00.2 Palpitations
CPT/HCPCS: 93010; 99204

== ENCOUNTER → 2024-12-27 12:55 | Outpatient (BNVA) | payer MEDICAID, SELFPAY | PROVIDERS: PCP Internal Medicine; Visit Provider Internal Medicine | DX: R06.02 Shortness of breath (principal); R00.2 Palpitations; R07.2 Precordial pain | CPT/HCPCS: 93005; 99202 ==

== ENCOUNTER → 2025-02-19 08:53 | Outpatient (REF) | payer MEDICAID, SELFPAY ==
--- NOTE | 2025-02-19 08:56 | CA_ITS ---
Acquisition Time: 2025-02-19 09:42:52 Total Exercise Time: 00:09:16 Test Indications: Dyspnea CP Medications: CYCLOBENZAPRINE Protocol: MCKENNA Max HR: 176 BPM 93% of Pred: 189 BPM Max BP: 148/80 mmHG Max Work Load: 10.5 METS Exercise stress test with exercise 9 mins 16 secs of Mckenna Protocol, achieving 90% MPHR, with reports of mild SOB, no chest pain, without any arrythmias, with normotensive response to exercise. Without any EKG changes meeting criteria for ischemia. In recovery, breathing returned to baseline. Test reviewed with Dr. Hussein. Referred By: Chauncey To Electronically Signed By: Francois Cash
--- NOTE | 2025-02-19 08:56 | HM_ITS ---
Conclusion: 1. Patient was monitored for total period of 2 days 2. Baseline was normal sinus rhythm with average heart of 80 beats per minute 3. No significant pauses noted next 4. Rare PACs noted with 1 episode of nonsustained VT at 4 beats at 122 beats per minute 4. No patient reported events MTDD
--- NOTE | 2025-02-19 08:56 | CA_ITS ---
Transthoracic Echocardiogram Patient (Last, First, Middle): Mac Connolly, Gender: Female Date of : 1995 Age: 29 Procedure Date: 02/19/2025 Procedure Type: Transthoracic Echocardiogram Location: OP Height: 172.72 cm Weight: 77.11 kg BSA: 1.91 m2 Heart Rate: bpm BP: 130 / 66 mmHg Phosphoric Acid Operator: Referring MD: Chauncey To MD Senior Mechanical Project Engineer: Evangelist Hussein MD Symptoms: R07.2 - Precordial pain Study Quality: Good ECG Rhythm: Sinus Conclusions: - Normal study Findings Left Ventricle Normal left ventricular size, thickness, and systolic function. The visually estimated ejection fraction is between 65-70%. Diastolic function is normal for age. Right Ventricle Normal right ventricular cavity size and systolic function. Atria Both atria are normal in size. There is no evidence of interatrial shunt. Aortic Valve Normal aortic valve structure and function. There is no aortic valve stenosis. There is no aortic valve regurgitation. Mitral Valve Normal mitral valve structure and function. There is trace mitral valve regurgitation. There is no mitral valve stenosis. Pulmonic Valve The pulmonic valve is likely normal. There is trace pulmonic valve regurgitation. Tricuspid Valve Normal tricuspid valve structure. There is trace tricuspid valve regurgitation. The right ventricular systolic pressure is normal. The right ventricular systolic pressure is 24 mmHg. Normal right atrial pressure. There is no evidence of pulmonary hypertension. Great Vessels All visible segments of the aorta are normal in size. The visualized portions of the pulmonary artery and branches are normal. Venous The inferior vena cava is normal in size and collapses greater than 50% with inspiration. Pericardium/Pleural There is no evidence of pericardial effusion. Prior Study Comparison No prior study available for comparison. Measurements 2D Linear Measurements IVSd: 0.93 0.6-0.9/0.6-1.0 cm LVIDd: 4.31 3.9-5.3/4.2-5.9 cm LVIDd Index: 2.26 2.4-3.2/2.2-3.1 cm/m2 LVIDs: 2.58 2.0-3.6 cm LVPWd: 0.99 0.7-1.1 cm Ao Root: 2.50 2.1-3.5 cm LA Diam: 3.20 2.7-3.8/3.0-4.0 cm LAIDs Index: 1.68 1.5-2.3 cm/m2 LV Mass: 168.09 67-162/88-224 g LV Mass Index: 88.01 43-95/49-115 g/m2 LVOT Diam: 1.90 3.0+(-)1.3 cm 2D Systolic Function EF 4C: 64.70 >55% EF 2C: 68.60 >55% EF BiP: 67.30 >55% Mitral Valve MV Pk E: 1.02 MV PK A: 0.66 MV Decel Time: 192.00 E/A: 1.50 E'Lateral: 18.30 E'Medial: 14.00 E/E' Med: 7.30 E/E' Lat: 5.60 PHT: 57.00 MVA PHT: 3.86 Decel Stone: 5.36 Aortic Valve AoV Pk David: 1.35 AoV Mn David: 0.95 AoV VTI: 0.35 AoV Pk Grad: 7.00 Aov Mn Grad: 4.00 VICKY Cont.VTI: 1.79 LVOT LVOT Pk David: 1.00 LVOT Mn David: 0.70 LVOT VTI: 0.22 LVOT Pk Grad: 4.00 LVOT Mn Grad: 2.00 LVOT Diam: 1.90 LVOT Area: 2.84 Diastolic Function MV Pk E: 1.02 MV Pk A: 0.66 E/A: 1.50 E'Medial: 14.00 E/E' Med: 7.30 E' Laterial: 18.30 E/E' Lat: 5.60 Right Ventricle TAPSE (mm): 32.00 TVS' David: 14.00 Tricuspid Valve TR Pk David: 2.27 TR Pk Grad: 21.00 RA Press: 3.00 RVSP: 24.00 Great Vessels Aorta Ao Root-2D: 2.50 2.0-3.7 cm Ao Asc: 2.40 2.1-3.4 cm Pulmonary Valve PV Pk David: 0.99 Peak PV Grad: 4.00 Updated in Other Vendor System with Status of Final Evangelist Hussein MD electronically signed on 02/20/2025 12:25:17 PM with status of Final
--- OUTSIDE RECORDS SUMMARY | 2025-02-19 09:07 | XMS_ITS | Encounter Summary ---
Author Organization [employer] Address [address] [facility] [address] [place] [address] Care Team Providers Care Aerotriangulation Specialist Name Role Phone Lyndsey Landaverde MD Primary Care Provide r Reason for Visit * Reason Onset Date Comments Lab Orders 01/22/2025 Appointment Request 01/22/2025 Encounter Details Date Type Department Care Team ([facility] st Contact Info) Description 01/22/[address] [facility] [address] [place] [address] Lyndsey Landaverde MD [address], [place] [phone] Lab Orders; Appointment Request Social History Tobacco Use Types Packs/Day Years Used Date Smoking Tobacco: Never Passive Smoke Exposure: Never Smokeless Tobacco: Never Alcohol Use Standard Drinks/Week Comments Never 0 [...] Orientation Straight 06/22/2022 10 :15 AM EDT documented as of this encounter Miscellaneous Notes * Telephone Encounter - Suzanne Gastelum - 01/22/2025 9:29 AM EDT Tc from pt requesting 3 things as will starts school she informs Physical TB order for lab Flu Vaccine documented in this encounter Plan of Treatment Upcoming Encounters Date Type Department Care Team (Late st Contact Info) Description 03/19/2025 1:15 PM EDT Office Visit [facility] [address] [place] [address] Cristela Mckeon MD [address] [place] [address] documented as of this encounter Visit Diagnoses Not on filedocumented in this encounter Additional Health Concerns Assessment Noted Time PHQ-9 Depression Total Score: 0 08/09/20 24 11:45 AM EST documented as of this encounter Care Teams Aerotriangulation Specialist Relationship Specialty Start Date End Date Lyndsey Landaverde MD [address] [place] [address] PCP - General Internal Medicine 10/25/23 documented as of this encounter
== END ==
LOC: HO.CARD 08:53
PROVIDERS: PCP Internal Medicine; Visit Provider Internal Medicine
DX: R07.2 Precordial pain (principal); R00.2 Palpitations; R06.02 Shortness of breath
CPT/HCPCS: 93017; 93242; 93306

== ENCOUNTER → 2025-02-19 08:56 | Outpatient (BNV) | payer MEDICAID, SELFPAY | PROVIDERS: PCP Internal Medicine | DX: R07.2 Precordial pain (principal) | CPT/HCPCS: 93016; 93018; 93320; 93325; 93350 ==

== ENCOUNTER 2025-03-19 13:47 | Outpatient (REF) | payer MEDICAID, SELFPAY ==
--- OUTSIDE RECORDS SUMMARY | 2025-03-19 14:27 | XMS_ITS | Data Portability ---
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 Procedures None recorded. Surgeries None recorded. Imaging None recorded. Medication Orders None recorded. Patient TargetsNo targets recorded. Patient InstructionsNo instructions recorded. Reason for Referral None Reported. 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 TEST PERFO RMED BY [facility], RUSTY AN, PAULIE MASON Y Not Available [facility] (Centralized Electronic Ordering - All Locations) Patient Can Go To The Location Of Their Choice, [id number] 06/05/2020 07:35:15 Result Notes None recorded. Problems [...] blood by Pulse oximetry Heart rate Systolic And Diastolic Provider Name and Address Organization Details Last Updated DateTime 0 98.9 [degF] 96 % 96 % 88 /min 112/60 mm[Hg] Not Available [facility] 0 18:32:54 [...] SNOMED-CT Code Diagnosis ICD10 Code Diagnosis Note [id number] ROSEMARY WEINBERG [facility] [address] [facility] [address] 06/01/2020 18:31:37 06/05/2020 00:10:35 Exposure to communicable disease 103441537 Z20.828 Health Concerns Section Related Observation LastModified by Organization Detai ls LastModified Time None Recorded Concern Status LastModified by Organization Details LastModified Time None Recorded Advance Directives Directive None Recorded Payers Insurance Date Sequence Insurance Name Policy Number Policy Talley Covered Member ID Talley Member ID Guarantor Name 10/31/2020 1 [place] [employer] Kelsie Mass [id number] Kelsie Mass 06/01/2020 1 *SELF PAY* Kelsie Mass [id number] Kelsie Mass OBGyn Episode No OBEpisode recorded.
[2025-03-20 03:45] LABS: HBS Num1 46.89 mIU/mL (0-7.99); HBc Num1 0.18 S/CO (0.00-0.79); HBsAGNum1 0.29 S/CO (0.00-0.99); Hepatitis B Surface Antigen Negative (Negative); ~Hepatitis B Surface Antibody REACTIVE (Nonreactive)
[2025-03-20 23:43] LABS: Rubeola IgG (Measles) 73.30 AU/mL
[2025-03-22 11:08] LABS: TS Negative Control Passed; TS Panel A 1; TS Panel B 0; TS Positive Control Passed; TSpotTB Negative (Negative)
[2025-03-23 03:45] LABS: ~Hepatitis A Antibody IgG 10.26 S/CO (0.00-0.99)
== END 2025-03-19 13:48 | disposition home or self-care (01) ==
LOC: HO.HHCL 13:47
PROVIDERS: PCP Internal Medicine; Visit Provider Family Medicine
DX: Z01.84 Encounter for antibody response examination (principal); Z11.1 Encounter for screening for respiratory tuberculosis; Z11.59 Encounter for screening for other viral diseases
CPT/HCPCS: 36415; 86481; 86704; 86706; 86708; 86735; 86762; 86765; 86787; 87340